=== PATIENT | female | born 1950 | race Caucasian/White ===

== ENCOUNTER 2025-09-18 10:52 | Day surgery (SDC) | payer MEDICARE, SELFPAY ==
[2025-09-18] VITALS (7 sets, daily range): BP systolic 105–135; BP diastolic 64–80; PULSE 69–79; RESP 14–16; TEMP 36.2–36.6; O2SAT 94–100; BMI 29.2
[2025-09-18] MEDS: Lactated Ringers 1,000 ML 15 ML IV (11:29)
--- NOTE | 2025-09-18 11:32 | PRE.ANES_ITS ---
ASA Classification* ASA Classification ASA Classification: 1 Assessment & Plan Anesthesia* Anesthesia Assessment Anesthesia Assessment: Discussed sedation and/or anesthesia options, risks, benefits, and alternatives with patient/parents/legal guardian/POA. Questions invited. The patient/parents/legal guardian/POA seems to understand and agrees to proceed with anesthesia plan. Reviewed the physical assessment, medical history, allergy history and patient home medications list prior to surgery/procedure/anesthetic and documented any changes. Performed airway and anesthesia risk assessments. 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 When Was Last Pacemaker Check QUESTION #4 FULL TEXT: You/Your Family Experience fever (hyperthermia) with Anesthesia Last Oral Intake Last Oral intake: Last Oral Intake NPO since 07:00 09/18/25 11:25 Meds taken in AM with sips of No 09/18/25 11:25 water? 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 Female Yes 09/17/25 09:53 HX of Motion Sickness No 09/17/25 09:53 HX of N/V After Surgery No 09/17/25 09:53 Non-Smoker Yes 09/17/25 09:53 Duration of Surgery greater No 09/17/25 09:53 than 60 minutes Number of Risk Factors 2 09/17/25 09:53 PONV Score Moderate Risk 09/17/25 09:53 Height & Weight Height & Weight: Anesthesia: Height & Weight Height 5 ft 2 in 09/18/25 11:25 Weight: 72.6 kg 09/18/25 11:25 Body Mass Index (BMI) 29.2 09/18/25 11:25 Respiratory Assessment Respiratory Assessment - 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 Has anyone observed you stop No 09/17/25 09:53 breathing during sleep? STOP Results Negative 09/17/25 09:53 QUESTION #5 FULL TEXT : Do you snore loudly (louder than talking or can be heard through closed doors)? 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 Specify any problems Hx of Preganancy in last 3 N/A 09/17/25 09:53 Months Nurse Filling Out Transfusion VCHRISTIN 09/17/25 09:53 & Questions: Date: 09/17/25 09/17/25 09:53 Time: 09:54 09/17/25 09:53 Patient unable to answer at this time (ie. 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: /Reproductive Hx- necktie centralizing machine operator Hx Now No 09/17/25 09:53 Gestational Age (in weeks): EDC: Hx Hx Para Hx Section SAB No 09/17/25 09:53 Does the father of the baby or his family experience fever w Father of the baby Malignant Hypertension history comment Active Medications Active Medications: Current Medications Generic Name Dose Route Start Last Admin Trade Name Freq PRN Reason Stop Dose Admin Lactated Ringer's 1,000 mls @ 15 mls/hr 09/18/25 11:00 09/18/25 11:29 IV 15 mls/hr .Q48H SAMIRA Administration PFSH Medical History Wears glasses Post-menopausal Diabetes Arthritis Gastric reflux Non-smoker Endometriosis Macular degeneration Diet-controlled diabetes mellitus HLD (hyperlipidemia) Esophageal spasm Home Medications ?Medication ?Instructions ?Recorded ?Last Taken ?Type dorzolamide 2 % eye drops 1 drp ophthalmic (eye) BID 1 10/27/24 Unknown History ofloxacin 0.3 % eye drops See Rx Instructions ophthalm ic 08/27/25 Unknown History Held on 09/17/25. (eye) .COMPLEX Instructions: TAKES PRIOR TO EYE INJ bilberry fruit 1,000 mg capsule 1,000 mg PO DAILY 09/01 04/25 Unknown History calcium 167 mg-vitamin D3 1.67 1 cap PO DAILY 09/17/25 Unknown History mcg-magnesium 83 mg capsule glucosam-sod chondro-vit C-radha 1 tab PO DAILY 09/17/25 Unknown History tablet multivitamin (Daily Multi-Vitamin 1 tab PO DAILY 09/17 Unknown History tablet) omega 3 350 mg-dha 235 mg-epa 90 1 cap PO BID 09/17/25 Unknown History mg-fish oil 597 mg capsule,delay rel ([place]-3) red yeast rice 600 mg tablet 600 mg PO DAILY 09/17/25 Unknown History vit C 250 mg-vit E 90 mg-zinc 40 1 tab PO BID 09/17/25 Unknown History mg-copper 1 bl-zyliob-rifjyh capsule ([facility]-2) Allergy/AdvReac Type Severity Reaction Status Date / Time Penicillins (PCN) Allergy Intermediate Other Verified 09/18/25 11:24 Family History Daughter Thyroid cancer Son Leukemia Brother Esophageal cancer Surgical History Hx of laparoscopy History of cataract surgery Hx of tonsillectomy Social History Smoking Status: Never smoker alcohol intake: never Review of Systems (Anesthesia) ROS Narrative System reviewed and no additional complaints, except as documented.
--- NOTE | 2025-09-18 11:39 | HP.PCM_ITS ---
HPI - General General Date of Admission: 09/18/25 Date of Service: 09/18/25 Chief Complaint: esophageal spasm HPI Narrative TITO BUITRAGO, is a 75 F who presents [ Chief Complaint: Esophageal spasms The patient, with a reported prior diagnosis of esophageal spasms from a nurse practitioner, presents with a two-year history of intermittent chest tightness/pressure occurring mostly during breakfast. Episodes are random and infrequent; initially felt like she could not breathe, but she is able to breathe during events. Discomfort is described as tightness rather than pain. During episodes, swallowing may be difficult; symptoms typically subside with relaxation, walking, or leaving the table, after which she resumes eating. No radiation to the back or shoulder. Denies associated nausea. Not clearly triggered by hot or cold foods. She takes multiple supplements and has considered whether pills could contribute; generally no difficulty swallowing pills. Last major episode occurred approximately six months ago; a milder episode began about six weeks ago and resolved with activity. Notes that keeping weight down (has belly fat) seems to lessen symptoms. Reports significant psychosocial stress over the past five years related to family issues after her father . FORMERLY [facility], 1928–1983 Medical History Wears glasses Post-menopausal Diabetes Arthritis Gastric reflux Non-smoker Endometriosis Macular degeneration Diet-controlled diabetes mellitus HLD (hyperlipidemia) Esophageal spasm Home Medications ?Medication ?Instructions ?Recorded ?Last Taken ?Type dorzolamide 2 % eye drops 1 drp ophthalmic (eye) BID 1 10/27/24 Unknown History ofloxacin 0.3 % eye drops See Rx Instructions ophthalm ic 08/27/25 Unknown History Held on 09/17/25. (eye) .COMPLEX Instructions: TAKES PRIOR TO EYE INJ bilberry fruit 1,000 mg capsule 1,000 mg PO DAILY 09/01 04/25 Unknown History calcium 167 mg-vitamin D3 1.67 1 cap PO DAILY 09/17/25 Unknown History mcg-magnesium 83 mg capsule glucosam-sod chondro-vit C-radha 1 tab PO DAILY 09/17/25 Unknown History tablet multivitamin (Daily Multi-Vitamin 1 tab PO DAILY 09/17 Unknown History tablet) omega 3 350 mg-dha 235 mg-epa 90 1 cap PO BID 09/17/25 Unknown History mg-fish oil 597 mg capsule,delay rel ([place]-3) red yeast rice 600 mg tablet 600 mg PO DAILY 09/17/25 Unknown History vit C 250 mg-vit E 90 mg-zinc 40 1 tab PO BID 09/17/25 Unknown History mg-copper 1 av-dnjrml-krsrlv capsule ([facility]-2) Allergy/AdvReac Type Severity Reaction Status Date / Time Penicillins (PCN) Allergy Intermediate Other Verified 09/18/25 11:24 Family History Daughter Thyroid cancer Son Leukemia Brother Esophageal cancer Surgical History Hx of laparoscopy History of cataract surgery Hx of tonsillectomy Social History Smoking Status: Never smoker alcohol intake: never ROS Constitutional Constitutional: Denies fatigue, fever(s), poor appetite, weight gain or weight loss Gastrointestinal Gastrointestinal: Denies belching, bloating, change in bowel habits, change in stool character, chewing difficulty, coffee ground emesis, constipation, cramping, diarrhea, dyspepsia, dysphagia, early satiety, excessive flatus, fecal incontinence, heartburn, hematemesis, hematochezia, hemorrhoids, loose stools, melena, nausea, odynophagia, rectal bleeding, tenesmus, vomiting or weight changes Patient's Goals Of Care . What would you like to achieve or improve as a result of your hospital stay?: Nothing Vital Signs Vital Signs Vital Signs: 09/18/25 11:25 09/18/25 11:25 09/18/25 11:25 Temperature 97.8 F Temperature Source Temporal Pulse Rate 74 Respiratory Rate 16 Respiratory Pattern Normal Blood Pressure 135/80 H Blood Pressure Mean 98 Blood Pressure Source Monitor Blood Pressure Position Sitting Blood Pressure Location Left Arm Baseline BP 135/80 Pulse Ox 100 Oxygen Delivery Method Room Air 09/18/25 11:34 Temperature 97.8 F Temperature Source Pulse Rate 74 Respiratory Rate 16 Respiratory Pattern Blood Pressure 135/80 H Blood Pressure Mean Blood Pressure Source Blood Pressure Position Blood Pressure Location Baseline BP Pulse Ox 100 Oxygen Delivery Method Room Air Weight Weight: 160 lb 0.889 oz Body Mass Index (BMI) 29.2 Physical Exam Const alert, oriented x3, no apparent distress and healthy appearing General Appearance: cooperative GI normal to inspection, nondistended, normoactive bowel sounds, soft to palpation, non-tender and non-distended Percussion: normal to percussion Rectal Exam: deferred Assessment & Plan Assessment/Plan (1) GERD (gastroesophageal reflux disease): (2) Esophageal spasm: PLAN: Assessment and Plan Assessment and Plan (1) GERD (gastroesophageal reflux disease): Status: Acute (2) Esophageal spasm: Status: Acute Plan: Esophageal symptoms (intermittent chest tightness/pressure with transient dysphagia) : Symptoms occur intermittently during breakfast, characterized by chest tightness/pressure with brief difficulty swallowing; episodes resolve with relaxation or walking. - Schedule endoscopic evaluation (scope) to assess esophageal anatomy and motility, and to evaluate for inflammation. - Obtain biopsies during endoscopy to assess for eosinophilic esophagitis (biopsy diagnosis). - During endoscopy, evaluate the stomach for hiatal hernia, ulcer, inflammation, and Helicobacter pylori (H. pylori). Family history of esophageal cancer : Patient reports brother of esophageal cancer. - Proceed with endoscopic evaluation as above to visualize anatomy and obtain biopsies. Psychosocial stress : Reports substantial stress related to family issues after father?s . Follow-up : Plan to proceed with scheduling and follow-up after endoscopic evaluation. - Nurse to arrange scheduling for endoscopic procedure. Portions of this note were generated using voice recognition software ([employer]). I have reviewed the contents and every effort has been made to ensure accuracy; however, inadvertent errors in grammar, spelling, punctuation, or word choice may occur, that were not noted before signing the document and should not alter the intended clinical meaning. Coding]
--- NOTE | 2025-09-18 12:00 | EGD_PTH ---
PATIENT: TITO BUITRAGO LOC: EN U#:[id number] AGE/SX: 75/F ROOM: RE09/18/[address]: Dr. Yuan Dela Cruz DO : 1950 BED: DIS: 09/18/2025 SPEC #: [id number] RECD: 09/18/25 12:10 STATUS: SHRADDHA JONNY #: [id number] ANUEL: 09/18/25 12:[address]: Yuan Dela Cruz DEPT: SURGICAL PATHOLOGY RECD BY: Antonio Ward ENTERED: 09/18/25 14:17 SP TYPE: EGD BIOPSY MY DR: Dania Elkins PA-C Tissues: A - Esophagus, NOS Procedures: Surgery Specimen Level IV HEADER OPERATION: EGD PRE-OP DIAGNOSIS: GERD, esophageal spasm TISSUE SUBMITTED: A- Distal esophagus biopsy MICROSCOPIC DIAGNOSIS A. Esophagus, distal, biopsy: Squamous mucosa with reactive changes and >20 eosinophils per high power field. Columnar mucosa with reactive epithelial change, negative for goblet cell metaplasia. MICROSCOPIC DESCRIPTION Slides are reviewed. GROSS DESCRIPTION A. Received in fixative is one container labeled with the patient's name and designated Distal esophagus biopsy. The specimen consists of multiple irregular fragments of rg tissue that in aggregate measure 1.2 x 0.6 x 0.1 cm. The specimen is totally submitted in one cassette. VT 09/18/2025 CPT:28242
--- NOTE | 2025-09-18 12:13 | OP.EGD_ITS ---
Patient Name: Dionna Pelayo Procedure Date: 09/18/2025 11:40 AM Date of : 1950 Age: 75 Procedure: Upper GI endoscopy Indications: Dysphagia Providers: Yuan Dela Cruz DO Medicines: Monitored Anesthesia Care Patient Profile: This is a 75 year old female. Refer to note in patient chart for documentation of history and physical. Patient has symptoms. Complications: No immediate complications. Procedure: Pre-Anesthesia Assessment: - Prior to the procedure, a History and Physical was performed, and patient medications and allergies were reviewed. The patient is competent. The risks and benefits of the procedure and the sedation options and risks were discussed with the patient. All questions were answered and informed consent was obtained. Patient identification and proposed procedure were verified by the physician in the pre-procedure area. Mental Status Examination: alert and oriented. Airway Examination: normal oropharyngeal airway and neck mobility. Respiratory Examination: clear to auscultation. CV Examination: normal. Prophylactic Antibiotics: The patient does not require prophylactic antibiotics. Prior Anticoagulants: The patient has taken no anticoagulant or antiplatelet agents. ASA Grade Assessment: II - A patient with mild systemic disease. After reviewing the risks and benefits, the patient was deemed in satisfactory condition to undergo the procedure. The anesthesia plan was to use monitored anesthesia care (MAC). Immediately prior to administration of medications, the patient was re-assessed for adequacy to receive sedatives. The heart rate, respiratory rate, oxygen saturations, blood pressure, adequacy of pulmonary ventilation, and response to care were monitored throughout the procedure. The physical status of the patient was re-assessed after the procedure. After obtaining informed consent, the endoscope was passed under direct vision. Throughout the procedure, the patient's blood pressure, pulse, and oxygen saturations were monitored continuously. The Endoscope was introduced through the mouth, and advanced to the second part of duodenum. The upper GI endoscopy was accomplished without difficulty. The patient tolerated the procedure well. Scope In: 11:53:21 AM Scope Out: 11:59:15 AM Total Procedure Duration Time 0 hours 5 minutes 54 seconds Findings: LA Grade C (one or more mucosal breaks continuous between tops of 2 or more mucosal folds, less than 75% circumference) esophagitis with no bleeding was found 38 to 41 cm from the incisors. Biopsies were taken with a cold forceps for histology. Verification of patient identification for the specimen was done. Estimated blood loss was minimal. A large hiatal hernia was present. No gross lesions were noted in the stomach. No gross lesions were noted in the entire examined duodenum. Impression: - LA Grade C erosive esophagitis with no bleeding. Biopsied. - Large hiatal hernia. - No gross lesions in the stomach. - No gross lesions in the entire examined duodenum. Recommendation: - Discharge patient to home. - Resume previous diet. - Continue present medications. - Await pathology results. - Omeprazole 40 mg p.o. twice daily x 2 months then 40 mg p.o. daily. Repeat upper endoscopy in 4 to 6 months Procedure Code(s): --- Professional --- 84392, Esophagogastroduodenoscopy, flexible, transoral; with biopsy, single or multiple CPT copyright 2021 [employer]. All rights reserved. The codes documented in this report are preliminary and upon geothermal plant manager review may be revised to meet current compliance requirements. Yuan Dela Cruz DO 09/18/2025 12:12:53 PM This report has been signed electronically. Number of Addenda: 0 Note Initiated On: 09/18/2025 11:40 AM
--- NOTE | 2025-09-18 12:18 | PCM.POST.ANE ---
Anesthesia: Postop Eval I Current Vital Signs Temperature: 97.1 F Pulse Rate: 79 Blood Pressure: 108/64 Respiratory Rate: 16 Pulse Ox: 95 Oxygen Delivery Method: Room Air Assessment Airway patent: Yes Spontaneous unlabored respirations: Yes Mental status: Awake and Calm nausea: No Vomiting: No Anesthesia Complication: Yes Anesthesia Complication Comment:: profuse coughing with subsequent O2 desat Fluid Hydration Crystalloid volume administer (ml): 400 Total IV fluid infused: 400 Progress Note Anesthesia document: Postop Eval 1 completed: Yes
--- NOTE | 2025-09-18 12:56 | PCM.POSTANE2 ---
Anesthesia Postop Eval I Sum Postop Eval Completion status Anesthesia document: Postop Eval 1 completed: Yes Anesthesia Postop Eval I Summary Anesthesia Postop Eval I Summary: Anesthesia Postop Eval I: Assessment Summary Airway patent Yes 09/18/25 12:18 [email or web address] Spontaneous unlabored Yes 09/18/25 12:18 [email or web address] respirations Mental status Awake,Calm 09/18/25 12:18 [email or web address] nausea No 09/18/25 12:18 [email or web address] Vomiting No 09/18/25 12:18 [email or web address] Anesthesia Postop Eval I: Fluid Summary Crystalloid volume administer 400 09/18/25 12:18 [email or web address] (ml) Colloids volume administered ( ml) Blood Product volume administered (ml) Total IV fluid infused 400 09/18/25 12:18 [email or web address] Anesthesia Postop Eval I: Summary Notes Anesthesia Complication Yes 09/18/25 12:18 [email or web address] Anesthesia Complication profuse coughing 09/18/25 12:18 [email or web address] Comment: with subsequent O2 desat Post-operative progress note Anesthesia: Postop Eval II Evaluation Mental status: Awake and Calm Pain Level: 1 nausea: No Vomiting: No Complications Anesthesia Complication: No
== END 2025-09-18 12:56 | disposition home or self-care (01) ==
LOC: EN 10:58 → AC 11:00
PROVIDERS: PCP Family Medicine; Referring Provider Family Medicine; Visit Provider Internal Medicine Gastroenterology
PROC: 0DJ08ZZ Inspection of Upper Intestinal Tract, Via Natural or Artificial Opening Endoscopic (ICD-10-PCS; CPT 43235; principal; 2025-09-18 11:55)
DX: K22.10 Ulcer of esophagus without bleeding (principal); E11.9 Type 2 diabetes mellitus without complications; K44.9 Diaphragmatic hernia without obstruction or gangrene; R07.89 Other chest pain; E78.5 Hyperlipidemia, unspecified; K22.4 Dyskinesia of esophagus; K21.9 Gastro-esophageal reflux disease without esophagitis; Z79.899 Other long term (current) drug therapy
CPT/HCPCS: 43239; 82962; 88305; J2405